=== PATIENT | male | born 1985 | race Caucasian/White ===

== ENCOUNTER 2022-10-29 00:49 | Emergency (ER) | payer SELFPAY ==
[~2022-10-29] VITALS: Ht 157.5 cm; Wt 64.2 kg
[2022-10-29 01:51] VITALS: BP 108/71; RESP 16; TEMP 98.5; O2SAT 98
[2022-10-29 01:56] VITALS: PULSE 102
== END 2022-10-29 09:00 | disposition left against medical advice (07) ==
LOC: ER 00:49
DX: Z53.21 Procedure and treatment not carried out due to patient leaving prior to being seen by health care provider (principal)
CPT/HCPCS: 99281